=== PATIENT | female | born 1990 | race Caucasian/White ===

== ENCOUNTER 2021-07-26 03:43 | Inpatient (IN) | payer BC, SELFPAY ==
[2021-07-26] VITALS (73 sets, daily range): BP systolic 75–153; BP diastolic 35–124; PULSE 59–148; RESP 16–18; TEMP 36.4–37.4; O2SAT 82–100; BMI 30.4
[2021-07-26] MEDS: AMPICILLIN 2 GM/NS 100 ML 2 GM/100 ML BAG IVPB (07:17)
[2021-07-26] MEDS: LACTATED RINGERS 1,000 ML 125 ML IV CONT (07:18)
[2021-07-26 07:26] LABS: Basophils Absolute Auto 0.1 K/mm3 (0.0-0.1); Basophils Percent Auto 0.5 % (0.2-1.2); Eosinophils Absolute Auto 0.1 K/mm3 (0-0.3); Eosinophils Percent Auto 0.6 % (0-4.4); Hematocrit 35.5 % (37.0-47.0); Hemoglobin 11.3 g/dL (12.0-15.0); Immature Granulocyte Absolute 0.07 K/mm3 (0.00-0.031); Immature Granulocyte Percent A 0.6 % (0-0.5); Lymphocytes Absolute Auto 2.39 K/mm3 (0.9-3.2); Lymphocytes Percent Auto 21.6 % (18.3-44.2); Mean Corpuscular HGB Conc 31.8 g/dl (32-36); Mean Corpuscular Hemoglobin 30.5 pg (26-34); Mean Corpuscular Volume 95.7 fl (80-100); Mean Platelet Volume 9.5 fl (7.4-10.4); Monocytes Absolute Auto 0.9 K/mm3 (0.1-0.6); Monocytes Percent Auto 8.3 % (2.6-8.5); Neutrophils Absolute Auto 7.6 K/mm3 (1.3-6.7); Neutrophils Percent Auto 68.4 % (45.5-73.1); Platelet Count Result 371 k/mm3 (150-375); Red Blood Count 3.71 M/mm3 (4.2-5.4); Red Cell Distribution Width 13.6 % (11.5-14.5); White Blood Count 11.1 K/mm3 (4.5-10.0)
--- NOTE | 2021-07-26 08:00 | LDADM ---
This patient, Poornima Johnson, was admitted to Labor/Delivery/Recovery 102 on 07/26/21 at 03:43. Plans for labor, pain management and were discussed with patient. Patient/family oriented to hospital policies and general routines including ID bracelet, bed and alarms, visiting hours, pain management, procedures, bathroom and other care routines, personal items, smoking policy, room service/diet and guest tray routines, infant security routines, and visiting hours. Patient/Family are encouraged to report perceived risks to care and to ask questions if they do not understand what they are told or what they should do. See OBIX for further documentation.
--- NOTE | 2021-07-26 08:05 | WPDOBADMIT ---
Obstetrics - Admit Note Admission Note: 31 y/o @ 40w4d here in spontaneous labor. History of . Discussed risks of including catastrophic risks.Pt verbalized understanding. record reviewed. No pertinent additions to the history and/or any subsequent changes in the physical findings that are not consistent with the expected course of the were found. Additions to the history and/or subsequent changes in the physical findings follow. None.
--- NOTE | 2021-07-26 08:08 | PM.IMHP ---
H&P: HPI History of Present Illness Date/Time: 07/26/21 08:08 31 y/o here in spontaneous labor. Chief Complaint: Labor Review of Systems Review of Systems: All systems reviewed & are unremarkable except as noted in HPI and below Constitutional: Constitutional: Reports as per HPI and Reports no additional constitutional complaints Eyes: Eyes: Reports as per HPI ENT: Reports system reviewed and no additional complaints, except as documented Cardiovascular: Cardiovascular: Reports as per HPI Respiratory: Respiratory: Reports as per HPI Gastrointestinal: Gastrointestinal: Reports as per HPI Genitourinary: Genitourinary: Reports no additional female genitourinary complaints Musculoskeletal: Musculoskeletal: Reports no additional musculoskeletal complaints Integumentary/Breasts: Skin/Breast: Reports system reviewed and no additional complaints, except as docu Neurologic: Reports system reviewed and no additional complaints, except as documented Psychiatric: Psychiatric: Reports no additional psychiatric complaints Endocrine: Endocrine: Reports no additional endocrine complaints Hematologic/Lymphatic: Hematologic/Lymphatic: Reports no additional hematologic/lymphatic complaints Allergic/Immunologic: Allergic/Immunologic: Reports no additional allergic/immunologic complaints [facility] Family History Family History Mother Skin cancer Grandparent Colon cancer Grandparent Diabetes mellitus Social History Social History Smoking status: Never smoker Substance use: never Spiritual care concerns: No Meds Home Medications and Allergies Allergies Allergy/AdvReac Type Severity Reaction Status Date / Time metronidazole [From Flagyl] Allergy Other Verified 07/02/21 13:42 Vital Signs Vital Signs - 24 hr 07/26/21 06:30 Pulse Rate 103 H Blood Pressure 118/75 Exam Const: General: cooperative and healthy appearing Orientation/consciousness: oriented to person, oriented to place, oriented to time and patient oriented x3 Limitations: no limitations HENMT: Head: normal to inspection Ears: hearing grossly normal bilaterally General nose exam: Normal external nose present Face and sinus: normal facial exam Mouth: Yes Normal oral and palatal mucosa present Teeth and gingiva: dentition normal Throat: posterior oropharynx normal Neck: Neck: normal visual inspection Chest: Chest palpation & inspection: normal inspection of the chest Resp: Effort & Inspection: normal respiratory effort Auscultation: clear to auscultation bilaterally Cardio: Rate: regular rate Rhythm: regular rhythm GI: Inspection: normal to inspection GI Palp: Yes Soft to palpation (Gravid. Irregular contractions.FHR category 1.) : General: Yes bimanual renal exam normal bilaterally Skin: General skin exam: normal color and no rashes or lesions noted Neuro: General: oriented to person, oriented to place, oriented to time and patient oriented x3 Extrem: General: normal to inspection Psych: Mental Status: mental status grossly normal H&P: Results Labs Labs: Short CBC 07/26/21 Range/Units 06:54 WBC 11.1 H (4.5-10.0) K/mm3 Hgb 11.3 L (12.0-15.0) g/dL Hct 35.5 L (37.0-47.0) % Plt Count 371 (150-375) k/mm3 Assessment and Plan Additional Plan Expectant management. Anticipate .
[2021-07-26 10:07] LABS: Rapid Plasma Reagin Non-Reactive (NonReactive)
[2021-07-26] MEDS: AMPICILLIN 1 GM/NS 50 ML 1 GM/50 ML BAG IVPB ×2 (11:24→15:24)
[2021-07-26] MEDS: fentaNYL CITRATE INJ (*CRX) 100 MCG/2 ML VIAL IV PUSH (13:25)
--- NOTE | 2021-07-26 14:01 | WPDANESEPPF ---
Anes - Initial Pre Proc Eval Date/Time: 07/26/21 14:01 Surgeon: Iram Banegas MD Pre Op Diagnosis: Contractions Patient Data Age: 31 Gender: F Height: 1.7 m Weight: 88.18 kg Last Vital Signs Temp 37.3 C 07/26/21 13:33 Pulse 92 07/26/21 14:01 BP 120/59 L 07/26/21 14:01 Pulse Ox 99 07/26/21 14:00 Allergies Allergy/AdvReac Type Severity Reaction Status Date / Time metronidazole [From Flagyl] Allergy Other Verified 07/02/21 13:42 Laboratory Tests 07/26/21 07/26/21 07/26/21 06:54 06:54 06:54 WBC 11.1 K/mm3 H K/mm3 (4.5-10.0) RBC 3.71 M/mm3 L M/mm3 (4.2-5.4) Hgb 11.3 g/dL L g/dL (12.0-15.0) Hct 35.5 % L % (37.0-47.0) MCV 95.7 fl fl (80-100) MCH 30.5 pg pg (26-34) MCHC 31.8 g/dl L g/dl (32-36) RDW 13.6 % % (11.5-14.5) Plt Count 371 k/mm3 k/mm3 (150-375) MPV 9.5 fl fl (7.4-10.4) Immature Gran % (Auto) 0.6 % H % (0-0.5) Neut % (Auto) 68.4 % % (45.5-73.1) Lymph % (Auto) 21.6 % % (18.3-44.2) [place] % (Auto) 8.3 % % (2.6-8.5) Eos % (Auto) 0.6 % % (0-4.4) Baso % (Auto) 0.5 % % (0.2-1.2) Lymph # (Auto) 2.39 K/mm3 K/mm3 (0.9-3.2) [place] # (Auto) 0.9 K/mm3 H K/mm3 (0.1-0.6) Eos # (Auto) 0.1 K/mm3 K/mm3 (0-0.3) Baso # (Auto) 0.1 K/mm3 K/mm3 (0.0-0.1) Abs Immat Gran (auto) 0.07 K/mm3 H K/mm3 (0.00-0.031) Absolute Neuts (auto) 7.6 K/mm3 H K/mm3 (1.3-6.7) Absolute Nucleated RBC 0.0 K/mm3 K/mm3 (0.0-0.012) Nucleated RBC % 0.0 % % (0.0-0.2) RPR Non-reactive (NonReactive) Blood Type O Positive Antibody Screen Negative Patient hx anesthesia problems: none Family hx anesthesia problems: none Results Review: All pre-operative results and documents have been reviewed as part of the pre-operative evaluation. [facility], [facility] Family History Family History Mother Skin cancer Grandparent Colon cancer Grandparent Diabetes mellitus Social History Social History Smoking status: Never smoker Substance use: never Spiritual care concerns: No Anes - Eval Final PreProcedure Day of Procedure 07/26/21 14:01 Patient weight: overweight Heart: regular rate and rhythm Lungs: clear to auscultation Neurological: alert and oriented ASA classification: II Emergent: no Anesthetic plan: proceed Anesthesia type and monitoring: regional epidural and standard monitoring Results Review: All pre-operative results and documents have been reviewed as part of the pre-operative evaluation. Informed Consent: The patient's anesthetic plan and its attendant risks and benefits were discussed with the patient/family/POA. Questions were solicited and answers provided to the satisfaction of the patient/family/POA.
[2021-07-26] MEDS: ONDANSETRON INJ 4 MG/2 ML VIAL IV PUSH (14:40)
[2021-07-26] MEDS: OXYTOCIN 30 UNITS/NS 500 ML 30 UNITS/500 ML BAG 125 UNITS IV CONT (17:06)
--- NOTE | 2021-07-26 17:41 | P.PCNOB_ITS ---
OB - Delivery Note Procedure Delivery date: 07/26/21 Procedure: events: Previous Intrapartal events: None Induction method: none Delivery monitor: external FHT and external uterine Route of delivery: Laceration Description: Vaginal - 2nd Degree (Vaginal laceration extended back to the sulcus. Difficulty obtaining good view or feel.Dr Hercules called in for assistance. Repair completed with 3-[address] Hercules. Once repair complete a 2nd rectal exam to confirm no further involvement.) Quantitative Blood Loss (ml): 426 Anesthesia type: Epidural Complications: not vigorous at . Cord clamped and handed off to nursery staff. Peds present. Mother and baby in stable condition. Cord gasses collected and handed off to staff. [place] Baby Date of : 07/26/21 Time of : 16:20 Weeks of gestation at delivery: 40 Infant gender: Female Weight (pounds): 8 Weight (ounces): 14 presentation: vertex position: Left Occiput Anterior Placenta delivery description: Spontaneous score one minute: 6 score five minutes: 9
[2021-07-26] MEDS: WITCH HAZEL 40 PADS 1 PAD TOPICAL (19:02)
[2021-07-26] MEDS: DOCUSATE SODIUM 100 MG CAPSULE PO (19:02)
[2021-07-26] MEDS: BENZOCAINE 20% AER SPR (*SP) 56 GM CAN 1 SPRAY TOPICAL (19:03)
[2021-07-26] MEDS: IBUPROFEN 600 MG TABLET PO (19:03)
--- NOTE | 2021-07-26 22:01 | PC.NURSE ---
07/26/2021 at 2056 Patient transferred in wheelchair to post room #284. Support person present. Oriented to unit, room, information board, rooming in, admission packet and security measures. Patient verbalizes understanding.
[2021-07-26] MEDS: ACETAMINOPHEN 325 MG TABLET 650 MG PO (22:20)
[2021-07-27] MEDS: IBUPROFEN 600 MG TABLET PO ×3 (01:05→19:21)
[2021-07-27] MEDS: HYDROcodone/acetaminophen (*CRX) 5-325 MG TABLET 1 TAB PO ×4 (01:43→22:29)
[2021-07-27 03:30] VITALS: BP 86/43; PULSE 75; RESP 16; TEMP 36; O2SAT 100
[2021-07-27 05:25] LABS: Hematocrit 23.4 % (37.0-47.0); Hemoglobin 7.5 g/dL (12.0-15.0)
[2021-07-27 07:30] VITALS: BP 94/50; PULSE 75; RESP 16; TEMP 36.8; O2SAT 100
[2021-07-27] MEDS: POLYSACCHARIDE IRON COMPLEX 150 MG CAPSULE PO ×2 (08:21→19:22)
[2021-07-27] MEDS: DOCUSATE SODIUM 100 MG CAPSULE PO ×2 (08:21→19:26)
[2021-07-27] MEDS: MULTIVIT/MIN/PREN/FOL AC/IRON TABLET 1 TAB PO (08:21)
--- NOTE | 2021-07-27 10:13 | PM.OBPNVD ---
OB - PN: Subj Subjective Date/time seen: 07/27/21 10:13 Patient comments: no complaints baby status: doing well OB - PN: Obj Data Labs CBC & Chem 7: 07/27/21 05:13 Labs: Laboratory Results - last 24 hr 07/27/21 05:13 Hgb 7.5 L D Hct 23.4 L OB - PN A/P Plan day: 1 Plan: routine care Comments: Significant decrease in H&H. Increased blood loss d/t difficulty repair. Pt is feeling well and has been up with out any s/s. Will recheck around noon. Did discuss transfusion benefits with patient. Will wait for repeat labs and see how patient is feeling. Time Spent With Patient Time: Total time spent is greater than 50% in coordination of care (as documented) at patient's floor/unit and/or counseling patient: Time with patient: less than 15 minutes Review of Systems Review of Systems: All systems reviewed & are unremarkable except as noted in HPI and below Exam Narrative: Fundus firm and vaginal flow controlled. No lower ext redness, warmth, or edema. Negative homans. Const: General: comfortable Chest: Breast/axilla inspection: normal inspection of the breasts Resp: Effort & Inspection: normal respiratory effort Cardio: Rate: regular rate GI: GI Palp: Yes Soft to palpation Psych: Appearance: grossly normal Affect: normal affect Attitude: cooperative Thought content: Yes Normal thought content present Judgement: Good judgement present (Psych)
[2021-07-27 12:23] VITALS: BP 101/37; PULSE 78; RESP 18; TEMP 36.9; O2SAT 100
[2021-07-27 12:24] LABS: Hematocrit 23.2 % (37.0-47.0); Hemoglobin 7.5 g/dL (12.0-15.0)
[2021-07-27 13:32] VITALS: BP 111/63
[2021-07-27 19:30] VITALS: BP 95/48; PULSE 110; RESP 18; TEMP 36.7; O2SAT 100
[2021-07-28] MEDS: HYDROcodone/acetaminophen (*CRX) 5-325 MG TABLET 1 TAB PO (06:56)
[2021-07-28] MEDS: MULTIVIT/MIN/PREN/FOL AC/IRON TABLET 1 TAB PO (06:57)
[2021-07-28] MEDS: DOCUSATE SODIUM 100 MG CAPSULE PO (06:57)
[2021-07-28] MEDS: POLYSACCHARIDE IRON COMPLEX 150 MG CAPSULE PO (06:57)
[2021-07-28] MEDS: IBUPROFEN 600 MG TABLET PO (07:17)
[2021-07-28 07:35] VITALS: BP 89/51; PULSE 90; RESP 16; TEMP 36.9; O2SAT 100
--- NOTE | 2021-07-28 09:44 | P.PNOB_ITS ---
OB - PN: Subj Subjective Date/time seen: 07/28/21 09:44 Patient comments: no complaints baby status: doing well OB - PN: Obj Data Labs CBC & Chem 7: 07/27/21 12:08 Labs: Laboratory Results - last 24 hr 07/27/21 12:08 Hgb 7.5 L Hct 23.2 L OB - PN A/P Plan day: 2 Plan: routine care and discharge home (F/U in 4 weeks) Comments: Stable H&H. Pt doing very well. Not interested in transfusion. Will fo cus on iron rich diet and supplements. Pt will also continue stool softener. Bleeding is minimal. Time Spent With Patient Time: Total time spent is greater than 50% in coordination of care (as documented) at patient's floor/unit and/or counseling patient: Time with patient: less than 15 minutes Review of Systems Review of Systems: All systems reviewed & are unremarkable except as noted in HPI and below Exam Narrative: Fundus firm and vaginal flow controlled. No lower ext redness, warmth, or edema. Negative homans. Const: General: comfortable Chest: Breast/axilla inspection: normal inspection of the breasts Resp: Effort & Inspection: normal respiratory effort Cardio: Rate: regular rate GI: GI Palp: Yes Soft to palpation Psych: Appearance: grossly normal Affect: normal affect Attitude: cooperative Thought content: Yes Normal thought content present Judgement: Good judgement present (Psych)
[2021-07-29 09:40] VITALS: BP 101/58; PULSE 93; RESP 20; TEMP 36.9; O2SAT 100
--- NOTE | 2021-08-14 09:03 | PM.OBDSVD ---
DS: Admitting Diagnosis Discharge Date 07/28/21 Admitting Diagnosis Induction of Labor OB - DS: Summary OB Procedures : None OB Procedures Intrapartum: OB Procedures: : None Time Spent with Patient Time attestation: Total time spent providing and/or coordinating discharge services: DS: Data Data Completed and Pending Completed studies during hospitalization: Pending at discharge 07/26/21 16:56 Surgical [PTH] Routine Discharge Plan Discharge Attending physician on discharge: Eliz Fatima Consulting providers: Eliz Fatima ; Benedict Longoria Discharging Clinician: Eliz Fatima Anticipated Discharge Date/Time: 07/28/21 11:00 Patient Disposition: Home, Self-Care Activity: no driving and pelvic rest Diet: as tolerated Discharge Instructions: Education: Mom and Baby Guide Given to: Mother Follow-Up: Call your delivering provider's office for an appointment to be seen in: 4 Weeks [facility] follow-up [facility]. Appointment Date/Time: July 29, 2021 at 9:00 am What to expect at your follow-up visit: Blood Pressure Check Physical Assessment Call [phone] if you are unable to keep your appointment time. BREAST CARE: * Wear a snug supportive bra. * For engorgement discomfort: Breast Feeding: * Apply warm moist washcloths * Express milk as needed to relieve engorgement * Wear loose clothing Bottle Feeding: * May apply ice packs * For sore nipples: * Identify correct latch-on * Apply warm moist washcloths before and after nursing * Air dry nipples after nursing * May apply Lansinoh cream to nipples ABDOMINAL INCISION: (if applicable) * Allow incision to air dry * Do NOT use lotions for powders on your incision * When showering, allow soap and water to run over the incision, but do not wash incision EPISIOTOMY/PERINEAL CARE: * Until bleeding stops, use your matthew bottle after urinating * Change your pad frequently throughout the day * You may take sitz baths several times a day (fill your bathtub with warm water and soak for 20 minutes.) Do NOT bathe in the water * No tub baths until seen by your physician - You may shower ACTIVITY: * Rest as much as possible. * Do not exercise or lift anything heavier than your baby (such as laundry or other children.) * Avoid stairs or driving as much as possible. * Do not put anything into the vagina. No douching, tampons, or sexual activity until seen by physician. NOTIFY PHYSICIAN IF YOU HAVE ANY QUESTIONS OR IF ANY OF THE FOLLOWING SYMPTOMS OCCUR: * If your incision becomes red, swollen, or more painful than what you have experienced in the hospital. * If your vaginal bleeding becomes foul smelling. * If your vaginal bleeding becomes more heavy than a period or if your bleeding changes from pink to bright red. However, you may pass an occasional walnut-sized clot once or twice for the first week . * If you experience a sharp, shooting pain in your calves. * If you discover a hard, reddened area on your breast or if you experience flu-like symptoms. DIET: * Eat regular, well-balanced meals. * Drink plenty of fluids daily. If , drink to thirst.Iron rich foods. Call if any increase in pain, increase in bleeding or feeling dizzy/lightheaded. Patient Instructions: and Nipple Soreness (DC), and Your Diet (DC), Vaginal Delivery (DC) Stand Alone Forms: General Discharge Information Follow-up/Referrals: Eliz Fatima CNM [Certified Nurse [employer] Bullet Maker] - Discharge Medications: New docusate sodium 100 mg Capsule 100 mg PO BID PRN (Reason: Constipation) Qty: 30 RF: 0 polysaccharide iron complex 150 mg iron Capsule 150 mg PO DAILY Qty: 30 RF: 0 Date of admission: 07/26/21 03:43
== END 2021-07-28 12:10 | disposition home or self-care (01) | DRG 807 ==
LOC: ANHLDR 06:20 → ANHOB2 21:07
PROVIDERS: Advanced Practice Midwife; Admitting Provider Obstetrics & Gynecology; Visit Provider Obstetrics & Gynecology
DX: O34.219 Maternal care for unspecified type scar from previous cesarean delivery (principal); Z37.0 Single live birth; O70.1 Second degree perineal laceration during delivery; O99.824 Streptococcus B carrier state complicating childbirth; O77.0 Labor and delivery complicated by meconium in amniotic fluid; Z3A.40 40 weeks gestation of pregnancy
CPT/HCPCS: 36415; 85014; 85018; 85025; 86592; 86850; 86900; 86901; 88307; A9270; J0290; J2405; J2590; J2795; J3010; J7120

== ENCOUNTER 2023-03-18 11:36 | Inpatient (IN) | payer BC, SELFPAY ==
[2023-03-18] VITALS (20 sets, daily range): BP systolic 73–120; BP diastolic 48–78; PULSE 78–164; RESP 16–18; TEMP 36.8; O2SAT 77–100; BMI 32.1
--- NOTE | 2023-03-18 12:18 | LDADM ---
This patient, Poornima Johnson, was admitted to Labor/Delivery/Recovery 102 on 03/18/23 at 11:36. Plans for labor, pain management and were discussed with patient. Patient/family oriented to hospital policies and general routines including ID bracelet, bed and alarms, visiting hours, pain management, procedures, bathroom and other care routines, personal items, smoking policy, room service/diet and guest tray routines, security routines, and visiting hours. Patient/Family are encouraged to report perceived risks to care and to ask questions if they do not understand what they are told or what they should do. See OBIX for further documentation.
[2023-03-18] MEDS: TERBUTALINE SULFATE 1 MG/ML VIAL 0.25 MG SUB-Q (12:32)
[2023-03-18] MEDS: LACTATED RINGERS 1,000 ML 125 ML IV CONT (12:36)
[2023-03-18 12:41] LABS: Basophils Percent Auto 0.4 % (0.2-1.2); Eosinophils Percent Auto 0.3 % (0-4.4); Hematocrit 39.2 % (37.0-47.0); Hemoglobin 12.8 g/dL (12.0-15.0); Immature Granulocyte Absolute 0.05 K/mm3 (0.00-0.031); Immature Granulocyte Percent A 0.5 % (0-0.5); Lymphocytes Absolute Auto 1.83 K/mm3 (0.9-3.2); Lymphocytes Percent Auto 19.1 % (18.3-44.2); Mean Corpuscular HGB Conc 32.7 g/dl (32-36); Mean Corpuscular Hemoglobin 32.2 pg (26-34); Mean Corpuscular Volume 98.7 fl (80-100); Mean Platelet Volume 9.8 fl (7.4-10.4); Monocytes Percent Auto 9.9 % (2.6-8.5); Neutrophils Absolute Auto 6.7 K/mm3 (1.3-6.7); Neutrophils Percent Auto 69.8 % (45.5-73.1); Platelet Count Result 334 k/mm3 (150-375); Red Blood Count 3.97 M/mm3 (4.2-5.4); Red Cell Distribution Width 13.2 % (11.5-14.5); White Blood Count 9.6 K/mm3 (4.5-10.0)
[2023-03-18] MEDS: AMPICILLIN 2 GM/NS 100 ML 2 GM/100 ML BAG IVPB (12:41)
[2023-03-18] MEDS: ONDANSETRON INJ 4 MG/2 ML VIAL IV PUSH (12:48)
[2023-03-18] MEDS: LIDOCAINE HCL 1% LOCAL INJ 20 ML VIAL (13:00)
[2023-03-18] MEDS: OXYTOCIN 30 UNITS/NS 500 ML 30 UNITS/500 ML BAG 999 UNITS IV CONT (13:09)
--- NOTE | 2023-03-18 13:21 | WPDOBADMIT ---
Obstetrics - Admit Note Admission Note: record reviewed. No pertinent additions to the history and/or any subsequent changes in the physical findings that are not consistent with the expected course of the were found. TOLAC, has 1 successful , this complicated by LGA Additions to the history and/or subsequent changes in the physical findings follow. None.
--- NOTE | 2023-03-18 13:22 | P.PCNOB_ITS ---
OB - Delivery Note Procedure Delivery date: 03/18/23 Procedure: Events: Other (LGA) Intrapartal Events: Decelerations Delivery monitor: External FHT and Internal FHT Route of delivery: Episiotomy description: Other (attempted) Laceration Description: Perineal - 1st Degree Delivery repair: vicryl Specimen: No Quantitative Blood Loss (ml): 225 Disposition: Floor [place] Baby Date of : 03/18/23 Time of : 13:03 Weeks of gestation at delivery: 40 gender: Female Weight (pounds): 10 Weight (ounces): 9 presentation: vertex position: Left Occiput Anterior Placenta delivery description: Spontaneous Cord Vessel Description: Nuchal Cord (x1) and Loose Narrative: head delivered 13:01.40, florentin maneuver and head of bed back, small movement of anterior shoulder under pubic bone, was able to rotate slightly with suprapubic pressure, episiotomy attempted but unable to attempt safely, dr nesbitt at and posterior arm delivered, delivery of at 1303, baby to warmer
[2023-03-18] MEDS: OXYTOCIN 30 UNITS/NS 500 ML 30 UNITS/500 ML BAG 125 UNITS IV CONT (13:43)
[2023-03-18] MEDS: IBUPROFEN 600 MG TABLET PO ×2 (13:44→20:25)
[2023-03-18 15:22] LABS: Rapid Plasma Reagin Non-Reactive (NonReactive)
--- NOTE | 2023-03-18 16:52 | PC.NURSE ---
Patient transferred to post room #287 via ( w/c ). Support person present. Oriented to unit, room, information board, rooming in, admission packet and security measures. Patient verbalizes understanding.
[2023-03-18] MEDS: DOCUSATE SODIUM 100 MG CAPSULE PO (17:12)
[2023-03-18] MEDS: ACETAMINOPHEN 325 MG TABLET 650 MG PO (17:13)
[2023-03-19] MEDS: ACETAMINOPHEN 325 MG TABLET 650 MG PO (04:08)
[2023-03-19] MEDS: IBUPROFEN 600 MG TABLET PO (04:08)
[2023-03-19 04:10] VITALS: BP 101/73; PULSE 74; RESP 18; TEMP 36.7
[2023-03-19 07:45] VITALS: BP 109/59; PULSE 84; RESP 18; TEMP 36.9; O2SAT 100
[2023-03-19 08:00] VITALS: PULSE 84; RESP 18; O2SAT 100
[2023-03-19] MEDS: MULTIVIT/MIN/PREN/FOL AC/IRON TABLET 1 TAB PO (08:12)
[2023-03-19] MEDS: DOCUSATE SODIUM 100 MG CAPSULE PO (08:12)
--- NOTE | 2023-03-19 08:24 | P.PNOB_ITS ---
OB - PN: Subj Subjective Date/time seen: 03/19/23 08:24 Patient comments: no complaints, pain well controlled, incisional pain, tolerating diet and flatus present OB - PN: Obj Data Labs 03/18/23 12:06 Labs: Laboratory Results - last 24 hr 03/18/23 12:06 WBC 9.6 RBC 3.97 L Hgb 12.8 D Hct 39.2 MCV 98.7 MCH 32.2 MCHC 32.7 RDW 13.2 Plt Count 334 MPV 9.8 Immature Gran % (Auto) 0.5 Neut % (Auto) 69.8 Lymph % (Auto) 19.1 [place] % (Auto) 9.9 H Eos % (Auto) 0.3 Baso % (Auto) 0.4 Lymph # (Auto) 1.83 [place] # (Auto) 1.0 H Eos # (Auto) 0.0 Baso # (Auto) 0.0 Abs Immat Gran (auto) 0.05 H Absolute Neuts (auto) 6.7 Absolute Nucleated RBC 0.0 Nucleated RBC % 0.0 RPR Non-reactive Blood Type O Positive Antibody Screen Negative OB - PN A/P Plan day: 1 Plan: routine care Comments: No problems, routine care Time Spent With Patient Time: Total time spent is greater than 50% in coordination of care (as documented) at patient's floor/unit and/or counseling patient: Exam Const: General: comfortable, no acute distress and alert Resp: Effort & Inspection: normal respiratory effort Auscultation: no crackles, no rales and no rhonchi Cardio: Rate: regular rate Heart sounds: no click, no murmurs and no rubs GI: Inspection: non-distended GI Palp: No Tenderness to palpation present (GI) Auscultation: normal bowel sounds Other: Incision - CDI Extrem: General: normal to inspection, no pedal edema and no calf tenderness
--- NOTE | 2023-03-19 08:24 | PM.OBDSVD ---
DS: Admitting Diagnosis Discharge Date 03/19/23 Admitting Diagnosis term DS: Discharge Diagnosis Discharge Diagnosis (1) Term delivered: Code(s): O80 - Encounter for full-term uncomplicated delivery Status: Acute OB - DS: Summary OB Procedures : None OB Procedures Intrapartum: Spontaneous Vag Delivery OB Procedures: : None Time Spent with Patient Time attestation: Total time spent providing and/or coordinating discharge services: DS: Data Data Completed and Pending Labs on day of discharge: Labs from last 24 hours 03/19/23 03/18/23 04:18 12:06 WBC 9.6 RBC 3.97 L Hgb Pending 12.8 D Hct Pending 39.2 MCV 98.7 MCH 32.2 MCHC 32.7 RDW 13.2 Plt Count 334 MPV 9.8 Immature Gran % (Auto) 0.5 Neut % (Auto) 69.8 Lymph % (Auto) 19.1 [place] % (Auto) 9.9 H Eos % (Auto) 0.3 Baso % (Auto) 0.4 Lymph # (Auto) 1.83 [place] # (Auto) 1.0 H Eos # (Auto) 0.0 Baso # (Auto) 0.0 Abs Immat Gran (auto) 0.05 H Absolute Neuts (auto) 6.7 Absolute Nucleated RBC 0.0 Nucleated RBC % 0.0 RPR Non-reactive Blood Type O Positive Antibody Screen Negative Discharge Plan Discharge Discharging Clinician: Jerald Hercules Patient Disposition: Home, Self-Care Activity: pelvic rest Diet: regular Patient Instructions: Antibiotic Form Stand Alone Forms: General Discharge Information Follow-up/Referrals: Jerald Hercules MD [Physician] - Discharge Medications: Continued famotidine 10 mg Tablet 10 mg PO HS Complete 30-975 mg-mcg Tablet 1 tablet PO DAILY Date of admission: 03/18/23 11:36 Primary Care Provider: PHYSICIAN,DINING CHAIR SEAT CUSHION TRIMMER Admitting Provider: Jerald Hercules Attending physician on admission: Jerald Hercules Condition: Stable
[2023-03-19 08:41] LABS: Hematocrit 28.7 % (37.0-47.0); Hemoglobin 9.3 g/dL (12.0-15.0)
[2023-03-19] MEDS: POLYSACCHARIDE IRON COMPLEX 150 MG CAPSULE PO (10:13)
--- NOTE | 2023-03-19 10:29 | PC.NURSE ---
Patient was given the opportunity to view the discharge video Mother & Baby Care, The First Two Weeks and to ask questions. Patient declined viewing the video and has been given the mother/baby guide for home reference.
[2023-03-19 12:20] VITALS: BP 113/64; PULSE 85; RESP 16; TEMP 36.8; O2SAT 100
== END 2023-03-19 13:08 | disposition home or self-care (01) | DRG 807 ==
LOC: ANHLDR 11:47 → ANHOB2 16:56
PROVIDERS: Advanced Practice Midwife; Admitting Provider Obstetrics & Gynecology; Visit Provider Obstetrics & Gynecology
DX: O34.219 Maternal care for unspecified type scar from previous cesarean delivery (principal); Z37.0 Single live birth; O36.63X0 Maternal care for excessive fetal growth, third trimester, not applicable or unspecified; O70.0 First degree perineal laceration during delivery; O76 Abnormality in fetal heart rate and rhythm complicating labor and delivery; O69.81X0 Labor and delivery complicated by cord around neck, without compression, not applicable or unspecified; O99.824 Streptococcus B carrier state complicating childbirth; O77.0 Labor and delivery complicated by meconium in amniotic fluid; O62.3 Precipitate labor; Z3A.40 40 weeks gestation of pregnancy; Z23 Encounter for immunization
CPT/HCPCS: 36415; 85014; 85018; 85025; 86592; 86850; 86900; 86901; 90471; 90686; A9270; G0008; J0290; J2405; J2590; J3105; J7120